=== PATIENT | male | born 1995 | race Asian ===

== ENCOUNTER 2019-01-29 22:31 | Emergency (ER) | payer SELFPAY ==
[2019-01-29 22:59] VITALS: BP 150/90; PULSE 102; TEMP 98.8; BMI 22.6
--- NOTE | 2019-01-30 02:11 | PDOC ---
Attending Attestation - HPI HPI: 01/30/19 02:18 The patient is a 23 year old male, with no significant past medical history, who presents to the emergency department via EMS with, marijuana intoxication. Patient notes smoking marijuana today prompting him to feel unwell prompting his arrival to the ED. While in the ED, the patient notes to be asymptomatic. He denies any recent fevers, chills, headache or dizziness. He denies any recent nausea, vomit, diarrhea or constipation. He denies any recent chest pain or shortness of breath. He denies any recent dysuria, frequency, urgency or hematuria. Allergies: NKDA - Physicial Exam PE: 01/30/19 02:18 GENERAL: Well-appearing, well-nourished. No apparent distress. HEENT: Normocephalic, atraumatic. PERRL, EOM intact. CARDIOVASCULAR: Normal S1, S2. Regular rate and rhythm. PULMONARY: Clear to auscultation bilaterally. ABDOMEN: Soft, non-distended, non-tender. EXTREMITIES: Normal ROM in all four extremities. No gross deformities. SKIN: Warm, dry. NEUROLOGICAL: No focal neurological deficits. <Alba Fry - Last Filed: 01/30/19 02:18> - Resident Resident Name: Shahid Jung - ED Attending Attestation I have performed the following: I have examined & evaluated the patient, The case was reviewed & discussed with the resident, I agree w/resident's findings & plan, Exceptions are as noted - Medical Decision Making 01/31/19 00:13 marijuana smoked and pt found to be altered/sugned out to Dr Christiansen <Nasra Guillory - Last Filed: 01/31/19 00:14> Attestations - Attestations 01/30/19 02:18 Documentation prepared by Alba Fry, acting as medical voucher clerk for Nasra Guillory MD. <Alba Fry - Last Filed: 01/30/19 02:18>
--- NOTE | 2019-01-30 05:10 | PDOC ---
History of Present Illness - General Chief Complaint: Substance Abuse Stated Complaint: ALTERED MENTAL STATUS Time Seen by Provider: 01/30/19 01:20 History Source: Patient Exam Limitations: No Limitations - History of Present Illness Initial Comments: 01/30/19 05:00 23 yo male no significant pmh presents to the ED after smoking marijuana today with friends, states friends called 911. Pt denies SI/HI, hallucinations, CP, SOB, back pain, F/C/N/V. Pt denies any medical complaints and is feeling well. Past History - Past Medical History Allergies/Adverse Reactions: Allergies Allergy/AdvReac Type Severity Reaction Status Date / Time No Known Allergies Allergy Verified 01/29/19 22:59 - Suicide/Smoking/Psychosocial Hx Smoking History: Never smoked Have you smoked in the past 12 months: No Information on smoking cessation initiated: No Hx Alcohol Use: No Drug/Substance Use Hx: No Review of Systems - Review of Systems Constitutional: No: Chills, Fever HEENTM: No: Blurred Vision, Double Vision Respiratory: No: Shortness of Breath Cardiac (ROS): No: Chest Pain ABD/GI: No: Nausea, Vomiting : No: Burning, Dysuria Musculoskeletal: No: Back Pain Integumentary: Yes: Pruritus Neurological: No: Headache, Numbness, Paresthesia, Weakness Psychiatric: Yes: Other (denies SI/HI hallucinations ) *Physical Exam - Vital Signs Last Vital Signs Temp Pulse Resp BP Pulse Ox 98.8 F 102 H 18 150/90 98 01/29/19 22:31 01/29/19 22:31 01/29/19 22:31 01/29/19 22:31 01/29/19 22:31 - Physical Exam General Appearance: Yes: Nourished, Appropriately Dressed. No: Apparent Distress HEENT: positive: EOMI, IKE Neck: positive: Supple Respiratory/Chest: positive: Lungs Clear, Normal Breath Sounds. negative: Crackles, Wheezing Cardiovascular: positive: Regular Rhythm, S1, S2, Tachycardia. negative: Edema , JVD, Murmur Vascular Pulses: Dorsalis-Pedis (R): 4+, Doralis-Pedis (L): 4+ Gastrointestinal/Abdominal: positive: Flat, Soft. negative: Pulsatile Mass Extremity: positive: Normal Capillary Refill Integumentary: positive: Normal Color, Dry, Warm Neurologic: positive: Fully Oriented, Alert, Normal Mood/Affect, Normal Response , Motor Strength 5/5, Other (patient ambulating without difficulty). negative: Sensory Deficit, Confused, Disoriented Moderate Sedation - Procedure Monitoring Vital Signs: Procedure Monitoring Vital Signs Temperature 98.8 F 01/29/19 22:31 Pulse Rate 102 H 01/29/19 22:31 Respiratory Rate 18 01/29/19 22:31 Blood Pressure 150/90 01/29/19 22:31 O2 Sat by Pulse Oximetry (%) 98 01/29/19 22:31 Medical Decision Making - Medical Decision Making 01/30/19 05:24 23 yo male presents to ED via EMS after smoking marijuana. States his friends called the ambulance and he has no current medical complaints. Denies SI/HI or hallucinations Vitals stable Patient ambulating without difficulty, eating and drinking in the ED NAD, AOX3 Pt stable for DC home, will call uber back to his home agrees and understands DC *DC/Admit/Observation/Transfer Diagnosis at time of Disposition: Intoxication by drug - Discharge Dispostion Disposition: HOME Condition at time of disposition: Fair Decision to Admit order: No - Referrals - Patient Instructions Additional Instructions: Please see your Primary Doctor within the next 24 -48 hours. Do not use drugs. Return to the ER for new or concerning symptoms. Thank you - Post Discharge Activity
== END 2019-01-30 06:20 | disposition home or self-care (01) ==
LOC: JER 22:31
DX: F12.129 Cannabis abuse with intoxication, unspecified (principal)
CPT/HCPCS: 99281-25